=== PATIENT | female | born 1990 | race Caucasian/White ===

== ENCOUNTER → 2019-11-29 13:06 | Outpatient (CLI) | payer OTHER, SELFPAY ==
--- NOTE | ~2019-11-29 | US_ITS ---
EXAMINATION: US thyroid EXAM DATE: 11/29/2019 13:42 INDICATION: Goiter. TECHNIQUE: Multiple grayscale and Doppler images of the thyroid were obtained (by a technologist who performed the scan) and subsequently reviewed. Individual nodules and recommendations may be reporte d in accordance with TI-RADS system as designated by the 2017 ACR White Paper TI-RADS committee. Ther e is no prior study for comparison. FINDINGS: The right thyroid lobe measures 4.8 x 1.3 x 1.3 cm, the left measuring 4.7 x 1.1 x 1.6 cm. There is h omogeneous thyroid echogenicity. There is a nodule in the right thyroid lobe measuring 5 x 6 x 6 millimeters, solid (2 points), hypoec hoic (2 points), wider than tall, smooth margin, May containing punctate echogenic foci (3 points), c ategory TR5 for this nodule. IMPRESSION: 1. Small right thyroid lobe nodule; recommend one-year follow-up ultrasound. Reviewed, dictated and finalized at location A.
== END ==
PROVIDERS: PCP Physician Assistant Medical; Visit Provider Physician Assistant Medical
DX: E04.9 Nontoxic goiter, unspecified (principal)
CPT/HCPCS: 76536

== ENCOUNTER → 2021-02-20 09:33 | Outpatient (CLI) | payer OTHER, SELFPAY ==
[2021-02-20 19:23] LABS: SARS-CoV-2 RNA PCR Positive
== END ==
PROVIDERS: PCP Physician Assistant Medical; Visit Provider Physician Assistant Medical
DX: U07.1 COVID-19 (principal)
CPT/HCPCS: C9803; U0003; U0005

== ENCOUNTER 2021-12-25 10:32 | Outpatient (CLI) | payer OTHER, SELFPAY ==
--- NOTE | ~2021-12-25 | US_ITS ---
EXAMINATION: US carotid duplex BI DATE: 12/25/2021 11:23 INDICATION: Dizziness TECHNIQUE: Grayscale, color Doppler, and pulsed Doppler images of the cervical carotid arteries were obtained. The degree of vessel stenosis is placed in one of the following categories: normal, <50%, 5 0-69%, >=70% but less than near-occlusion, near-occlusion, or total occlusion. Note that percent sten osis relative to normal distal artery lumen diameter is indirectly measured from velocity measurement s as described by Chet, et al. Radiology 2003; 229:340-346. Notes: Normal: Peak systolic velocity <125 centimeters/sec and no plaque <50%. Peak systolic velocity <125 ( EDV <40; ICA/CCA PSV ratio <2.0; used these factors only a tandem lesions or low cardiac output or co ntralateral disease) 50-69 %: PSV 125-230 (EDV 40-100; ratio 2-4) >= 70% but less than near occlusion: PSV greater than 230 (EDV > 100; ratio> 4.0) Near Occlusion: PSV that is variable; markedly narrowed lumen Occlusion: Absent flow on color/spectral Doppler and no lumen on mcneil scale. COMPARISON: None. FINDINGS: RIGHT: The right common carotid artery (CCA) peak systolic velocity (PSV) is 134 cm/s. The right internal ca rotid artery (ICA) PSV is 107 cm/s. The right ICA end-diastolic velocity (EDV) is 37 cm/s. The right ICA/CCA PSV ratio is 0.8. The external carotid artery (ECA) PSV is 92 cm/s. There is antegrade flow i n the right vertebral artery. LEFT: The left CCA PSV is 152 cm/s. The left ICA PSV is 96 cm/s. The left ICA EDV is 41 cm/s. The left ICA/ CCA PSV ratio is 0.6. The ECA PSV is 91 cm/s. There is antegrade flow in the left vertebral artery. IMPRESSION: 1. Less than 50% stenosis in the right internal carotid artery by sonographic criteria. 2. Less than 50% stenosis in the left internal carotid artery by sonographic criteria. Reviewed, dictated and finalized at location B. IMPRESSION: 1. Less than 50% stenosis in the right internal carotid artery by sonographic suzette katz. 2. Less than 50% stenosis in the left internal carotid artery by sonographic samantha suarez.
--- NOTE | ~2021-12-25 | US_ITS ---
US thyroid INDICATION: Nontoxic thyroid nodule TECHNIQUE: Real-time sonographic images of the thyroid gland were obtained. COMPARISON: Ultrasound dated 11/29/2019 FINDINGS: The right thyroid lobe measures 5.5 x 2 x 1.2 cm. The left thyroid lobe measures 4.8 x 1.7 x 1 cm. In the right thyroid lobe there is a small hypoechoic mass measuring 4 x 3 x 4 mm which has a spongiform appearance, hypoechoic, wider than tall, ill-defined margins and echogenic foci, thyroid category TR 4, which does not meet sonographic criteria for biopsy. In the left lobe there is a hypo echoic mass measuring 8 x 7 x 6 mm which is hypoechoic, solid, tolerated than wide, irregular margins with macrocalcifications, TR 5. IMPRESSION: 1. Enlarging left thyroid mass measuring 8 x 7 x 6 mm compared with 6 x 6 x 5 mm on prior examinatio n. Thyroid category TR 5. This does not meet sonographic criteria for biopsy. Follow-up thyroid ultra sound in 12 months recommended. Reviewed, dictated and finalized at location B. IMPRESSION: 1. Enlarging left thyroid mass measuring 8 x 7 x 6 mm compared with 6 x 6 x 5 mm on prior examination. Thyroid category TR 5. This does not meet sonographic criteria for biopsy. Follow-up thyroid ultrasound in 12 months recommended.
== END 2021-12-25 10:33 | disposition home or self-care (01) ==
PROVIDERS: PCP Family Medicine; Visit Provider Nurse Practitioner Family
DX: R42 Dizziness and giddiness (principal); R00.2 Palpitations; E04.1 Nontoxic single thyroid nodule; I65.23 Occlusion and stenosis of bilateral carotid arteries
CPT/HCPCS: 76536; 93880

== ENCOUNTER 2021-12-30 09:05 | Outpatient (CLI) | payer OTHER, SELFPAY ==
--- NOTE | 2022-01-01 14:01 | WPDHOLTEREM ---
Holter/Event Monitor Holter/Event Monitor Date of procedure: 12/30/21 Holter/Event Procedure: 48 Hr Holter Monitor Indications: Palpitations Conclusion: 1. 48 hour holter monitor on 12/30/21. 2. Underlying rhythm is sinus rhythm. HR range 46-160 bpm; average HR 72 bpm. 3. There are 2 premature supraventricular complexes and 25 supraventricular couplets. No supraventricular tachycardia. 4. There are 3 premature ventricular complexes. No ventricular tachycardia. 5. No sinoatrial or atrioventricular blocks. No significant pauses greater than 2 seconds. 6. No symptoms available for correlation.
== END 2021-12-30 09:06 | disposition home or self-care (01) ==
PROVIDERS: PCP Family Medicine; Visit Provider Nurse Practitioner Family
DX: R00.2 Palpitations (principal)
CPT/HCPCS: 93225; 93226

== ENCOUNTER → 2022-05-15 12:54 | Outpatient (CLI) | payer OTHER, SELFPAY ==
--- NOTE | ~2022-05-15 | US_ITS ---
Pelvic ultrasound. Clinical History: First trimester , assess for viability Technique: Realtime transabdominal and transvaginal scanning of the pelvis was performed. Color flow Doppler and Doppler spectral analysis were performed. Findings: The uterus is anteverted, and contains an intrauterine gestation. [place]-rump length of 2 cm corresponds to an estimated gestational age of 8 weeks 4 days. heart rate is 174 bpm. Neither ovary seen. No adnexal mass seen. There is no evidence of free fluid in the cul de sac. Impression: Live intrauterine gestation with estimated gestational age of 8 weeks 4 days. heart rate is 174 bpm. Reviewed, dictated and finalized at location . RAIT ARTIST Impression: Live intrauterine gestation with estimated gestational age of 8 weeks 4 days. F etal heart rate is 174 bpm.
== END ==
PROVIDERS: Visit Provider Advanced Practice Midwife
DX: O36.80X0 Pregnancy with inconclusive fetal viability, not applicable or unspecified (principal); Z3A.08 8 weeks gestation of pregnancy
CPT/HCPCS: 76801

== ENCOUNTER → 2022-07-24 15:50 | Outpatient (CLI) | payer OTHER, SELFPAY ==
--- NOTE | ~2022-07-24 | US_ITS ---
EXAMINATION: US OB /maternal detail DATE: 07/24/2022 16:32 INDICATION: Encounter for screening, unspecified. TECHNIQUE: Real-time ultrasound of the pelvis was performed. COMPARISON: Ultrasound 05/15/2022 FINDINGS: There is a single living fetus in vertex presentation. The placenta is posterior, 4.0 cm from the ce rvix. The cervical length is 2.6 cm on transabdominal images, which is normal. heart rate is 13 8 beats per minute (bpm). The amniotic fluid volume is subjectively normal. The following biometric data were obtained: Biparietal diameter (BPD): 4.2 cm; head circumference (HC): 16.7 cm; abdominal circumference (AC): 13 .7 cm; femur length (FL): 2.7 cm. These measurements are concordant. Estimated weight is 258 g +/- 39 g, which correlates with the 60th percentile when 12/21/22 is u sed as estimated date of delivery. As single measurements, these parameters are each equal to the following estimated gestational ages: BPD: 18 weeks 5 days. HC: 19 weeks 3 days. AC: 19 weeks 1 days. FL: 18 weeks 2 days. estimated gestational age based solely on measurements from this exam is 18 weeks 6 days +/- 1 weeks 2 days. The cerebral ventricles, cerebellum, cisterna magna, nuchal fold, lip, and visualized portions of the spine are normal. The heart is normal. The diaphragm, stomach, kidneys, and bladder are normal. Ther e are two umbilical arteries to yield a 3-vessel cord. The cord insertion is normal. IMPRESSION: 1. Single living fetus in vertex presentation. 2. Estimated weight is 258 g +/- 39 g, which correlates with the 60th percentile when 12/21/22 is used as estimated date of delivery. This date was set by ultrasound on 05/15/2022. 3. Normal anatomic survey. Reviewed, dictated and finalized at location A. IMPRESSION: 1. Single living fetus in vertex presentation. 2. Estimated weight is 258 g +/- 39 g, which correlates with the 60th pe rcentile when 12/21/22 is used as estimated date of delivery. This date was set by ultrasound on 05/15/2022. 3. Normal anatomic survey.
== END ==
PROVIDERS: PCP Advanced Practice Midwife; Visit Provider Advanced Practice Midwife
DX: Z36.9 Encounter for antenatal screening, unspecified (principal); Z3A.00 Weeks of gestation of pregnancy not specified
CPT/HCPCS: 76805

== ENCOUNTER → 2022-10-20 14:00 | Outpatient (CLI) | payer OTHER, SELFPAY ==
--- NOTE | ~2022-10-20 | US_ITS ---
EXAMINATION: US OB follow up DATE: 10/20/2022 14:23 INDICATION: Gestational size less than dates. EXAMINATION: US OB follow up TECHNIQUE: Real-time transabdominal obstetric ultrasound. FINDINGS: Comparison to multiple prior studies sequentially, with oldest reviewed study dated 2022. There is a single living fetus in vertex presentation. The placenta is posterior without placenta pr evia. cardiac activity and movement is noted with a heart rate of 1:30 beats per minute. The amniotic fluid volume is normal with SADIE measuring 11.9. The following biometric data were obtained: BPD: 84mm corresponds to gestational age 34 weeks 0 days. Head circumference: 306mm corresponds to gestational age 34 weeks 1 days. Abdominal circumference: 281mm corresponds to gestational age 32 weeks 1 days. Femur length: 60mm corresponds to gestational age 31 weeks 2 days. Estimated weight: 1936grams +/- 290grams, 75.6%. IMPRESSION: 1. Single living intrauterine in vertex presentation with an estimated gestational age of 31 weeks 1 days by inititial ultrasound. Appropriate interval growth. 2. Normal placenta. 3: Normal SADIE measures 11.9 cm. Reviewed, dictated and finalized at location L. IMPRESSION: 1. Single living intrauterine in vertex presentation with an estimat ed gestational age of 31 weeks 1 days by inititial ultrasound. Appropriate int erval growth. 2. Normal placenta. 3: Normal SADIE measures 11.9 cm.
== END ==
PROVIDERS: PCP Advanced Practice Midwife; Visit Provider Advanced Practice Midwife
DX: O36.5930 Maternal care for other known or suspected poor fetal growth, third trimester, not applicable or unspecified (principal); Z3A.31 31 weeks gestation of pregnancy
CPT/HCPCS: 76816

== ENCOUNTER 2022-12-11 01:00 | Inpatient (IN) | payer OTHER, SELFPAY ==
[2022-12-11] VITALS (125 sets, daily range): BP systolic 92–189; BP diastolic 40–153; PULSE 63–153; RESP 16–18; TEMP 35.9–37.3; O2SAT 93–100; BMI 25.4
[2022-12-11 02:20] LABS: Basophils Percent Auto 0.4 % (0.2-1.2); Eosinophils Absolute Auto 0.1 K/mm3 (0-0.3); Eosinophils Percent Auto 1.1 % (0-4.4); Hematocrit 35.6 % (37.0-47.0); Immature Granulocyte Percent A 1.2 % (0-0.5); Lymphocytes Absolute Auto 1.81 K/mm3 (0.9-3.2); Lymphocytes Percent Auto 21.6 % (18.3-44.2); Mean Corpuscular HGB Conc 33.7 g/dl (32-36); Mean Corpuscular Hemoglobin 30.7 pg (26-34); Mean Platelet Volume 11.5 fl (7.4-10.4); Monocytes Absolute Auto 1.1 K/mm3 (0.1-0.6); Monocytes Percent Auto 13.3 % (2.6-8.5); Neutrophils Absolute Auto 5.2 K/mm3 (1.3-6.7); Neutrophils Percent Auto 62.4 % (45.5-73.1); Platelet Count Result 166 k/mm3 (150-375); Red Blood Count 3.91 M/mm3 (4.2-5.4); Red Cell Distribution Width 13.2 % (11.5-14.5); White Blood Count 8.4 K/mm3 (4.5-10.0)
--- NOTE | 2022-12-11 04:34 | LDADM ---
This patient, Yvette Cortez, was admitted to Labor/Delivery/Recovery 105 on 12/11/22 at 01:00. Plans for labor, pain management and were discussed with patient. Patient/family oriented to hospital policies and general routines including ID bracelet, bed and alarms, visiting hours, pain management, procedures, bathroom and other care routines, personal items, smoking policy, room service/diet and guest tray routines, infant security routines, and visiting hours. Patient/Family are encouraged to report perceived risks to care and to ask questions if they do not understand what they are told or what they should do. See OBIX for further documentation.
[2022-12-11 06:05] LABS: Rapid Plasma Reagin Non-Reactive (NonReactive)
[2022-12-11] MEDS: LACTATED RINGERS 1,000 ML 125 ML IV CONT ×2 (06:08→07:16)
--- NOTE | 2022-12-11 06:15 | WPDANESEPP ---
Anes - Eval Pre Procedure Procedure: labor eoidural Date/Time: 12/11/22 06:15 Pre Op Diagnosis: SROM Patient Data Age: 32 Gender: F Height: 1.75 m Weight: 78 kg Last Vital Signs Pulse 81 12/11/22 02:00 BP 138/76 12/11/22 02:00 Allergies Allergy/AdvReac Type Severity Reaction Status Date / Time No Known Allergies Allergy Verified 11/22/22 12:29 Home Medications Medication Instructions Recorded Confirmed Type escitalopram oxalate 10 mg tablet 5 mg PO DAILY #90 tabs 01/02/22 12/11/22 Rx (Lexapro) calcium-ergocalciferol (vit D2) 1 cap PO WEEKLY 11/22/22 12/11/22 History capsule vits no.126-ferrous fum 1 tablet PO DAILY 11/22/22 12/11/22 History 28 mg iron-folic acid 800 mcg tablet (Classic ) Laboratory Tests 12/11/22 02:05 WBC 8.4 K/mm3 (4.5-10.0) RBC 3.91 L M/mm3 (4.2-5.4) Hgb 12.0 g/dL (12.0-15.0) Hct 35.6 L % (37.0-47.0) MCV 91.0 fl (80-100) MCH 30.7 pg (26-34) MCHC 33.7 g/dl (32-36) RDW 13.2 % (11.5-14.5) Plt Count 166 k/mm3 (150-375) MPV 11.5 H fl (7.4-10.4) Immature Gran % (Auto) 1.2 H % (0-0.5) Neut % (Auto) 62.4 % (45.5-73.1) Lymph % (Auto) 21.6 % (18.3-44.2) Sequoyah % (Auto) 13.3 H % (2.6-8.5) Eos % (Auto) 1.1 % (0-4.4) Baso % (Auto) 0.4 % (0.2-1.2) Lymph # (Auto) 1.81 K/mm3 (0.9-3.2) Sequoyah # (Auto) 1.1 H K/mm3 (0.1-0.6) Eos # (Auto) 0.1 K/mm3 (0-0.3) Baso # (Auto) 0.0 K/mm3 (0.0-0.1) Abs Immat Gran (auto) 0.10 H K/mm3 (0.00-0.031) Absolute Neuts (auto) 5.2 K/mm3 (1.3-6.7) Absolute Nucleated RBC 0.0 K/mm3 (0.0-0.012) Nucleated RBC % 0.0 % (0.0-0.2) RPR Non-reactive (NonReactive) Blood Type B Positive Antibody Screen Negative Patient hx anesthesia problems: none Family hx anesthesia problems: none Results Review: All pre-operative results and documents have been reviewed as part of the pre-operative evaluation. [facility] Past Medical History Medical History BMI between 19-24,adult Family History Family History Father No problems noted. Mother Heart disease Hypotension Sibling No problems noted. 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 Gender identity (if verbalized by the patient): Female Sexual Orientation (if Verbalized by the Patient): Straight or Heterosexual Spiritual care concerns: No Agree to blood products: Yes Exam Day of Procedure 12/11/22 06:15 Patient weight: normal Heart: regular rate and rhythm Lungs: normal air movement Airway: Mallampati scale Neurological: alert and oriented
[2022-12-11] MEDS: fentaNYL CITRATE INJ (*CRX) 100 MCG/2 ML VIAL 50 MCG IV PUSH (06:16)
[2022-12-11] MEDS: OXYTOCIN 30 UNITS/NS 500 ML 30 UNITS/500 ML BAG IV CONT (07:28)
--- NOTE | 2022-12-11 07:45 | WPDOBADMIT ---
Obstetrics - Admit Note Admission Note: record reviewed. No pertinent additions to the history and/or any subsequent changes in the physical findings that are not consistent with the expected course of the were found. Additions to the history and/or subsequent changes in the physical findings follow. Here in labor with SROM. Now 4-5 cm per RN and just got epidural. FHTs Cat. I. Pitocin augmentation.
--- NOTE | 2022-12-11 13:30 | PM.OBPRVD ---
OB - Delivery Note Procedure Delivery date: 12/11/22 Procedure: Induction method: None Delivery augmentation: Pitocin Delivery monitor: External FHT and External Uterine Route of delivery: Laceration Description: Perineal - 2nd Degree Delivery repair: vicryl (3-0) Specimen: No Quantitative Blood Loss (ml): 200 Anesthesia type: Epidural Disposition: Floor [place] Baby Date of : 12/11/22 Weeks of gestation at delivery: 39 gender: Male presentation: vertex position: Right Occiput Anterior Placenta delivery description: Spontaneous Cord Vessel Description: 3 Vessels, Nuchal Cord (x 4) and Around Body (under arm, around body and between legs) score one minute: 8 score five minutes: 9
--- NOTE | 2022-12-11 13:32 | PM.OBDSVD ---
DS: Admitting Diagnosis Discharge Date 12/13/22 Admitting Diagnosis SROM in early labor at 39 3/7 DS: Discharge Diagnosis Discharge Diagnosis (1) (normal spontaneous vaginal delivery): Code(s): O80 - Encounter for full-term uncomplicated delivery Status: Acute OB - DS: Summary OB Procedures : Ultrasound OB Procedures Intrapartum: Spontaneous Vag Delivery OB Procedures: : None Peripartum Data Infant Delivery Method: Natural Vaginal Laceration Description: Perineal - 2nd Degree complications: none Status at Discharge Functional status at discharge: independent ambulation Time Spent with Patient Time attestation: Total time spent providing and/or coordinating discharge services: DS: Data Data Completed and Pending Labs on day of discharge: Labs from last 24 hours 12/11/22 02:05 WBC 8.4 RBC 3.91 L Hgb 12.0 Hct 35.6 L MCV 91.0 MCH 30.7 MCHC 33.7 RDW 13.2 Plt Count 166 MPV 11.5 H Immature Gran % (Auto) 1.2 H Neut % (Auto) 62.4 Lymph % (Auto) 21.6 Weld % (Auto) 13.3 H Eos % (Auto) 1.1 Baso % (Auto) 0.4 Lymph # (Auto) 1.81 [place] # (Auto) 1.1 H Eos # (Auto) 0.1 Baso # (Auto) 0.0 Abs Immat Gran (auto) 0.10 H Absolute Neuts (auto) 5.2 Absolute Nucleated RBC 0.0 Nucleated RBC % 0.0 RPR Non-reactive Blood Type B Positive Antibody Screen Negative Discharge Plan Discharge Attending physician on discharge: Yris Carpenter Discharging Clinician: Yris Carpenter Anticipated Discharge Date/Time: 12/13/22 13:33 Patient Disposition: Home, Self-Care Activity: may shower and pelvic rest Diet: regular Patient Instructions: Antibiotic Form Stand Alone Forms: General Discharge Information Follow-up/Referrals: Yris Carpenter MD [Physician] - 6 Weeks Discharge Medications: New norethindrone (contraceptive) 0.35 mg tablet 0.35 mg PO DAILY Qty: 84 3RF Rx Instructions: start in 3 weeks Continued escitalopram oxalate [Lexapro] 10 mg tablet 5 mg PO DAILY Qty: 90 1RF Classic 28 mg iron- 800 mcg Tablet 1 tablet PO DAILY Discontinued calcium-vitamin D2 Capsule 1 cap PO WEEKLY Date of admission: 12/11/22 01:00 Primary Care Provider: PHYSICIAN,HVAC R INSTRUCTOR Admitting Provider: Yris Carpenter Attending physician on admission: Yris Carpenter Condition: Stable
[2022-12-11] MEDS: OXYTOCIN 30 UNITS/NS 500 ML 30 UNITS/500 ML BAG 125 UNITS IV CONT (13:50)
--- NOTE | 2022-12-11 15:28 | PC.NURSE ---
Patient transferred to post room #287 via wheelchair. Support person present. Oriented to unit, room, information board, rooming in, admission packet and security measures. Patient verbalizes understanding.
[2022-12-11] MEDS: BENZOCAINE 20% AER SPR (*SP) 56 GM CAN 1 SPRAY TOPICAL (15:49)
[2022-12-11] MEDS: WITCH HAZEL 40 PADS 1 PAD TOPICAL (15:49)
--- NOTE | 2022-12-11 16:31 | PC.NURSE ---
[id number] Consulted with patient to assess needs related to . Mother led conversation with her experience with feeding baby so far. Mother works well with her with encouragement. Reviewed positioning and alignment, supporting breast, off-centered (asymmetrical latch) and leading with the chin with big, open, wide gape. Infant latched to the right breast in football position and LC assisted and educated mother with a deeper latch to protect her nipples and optimize swallows. Education given to mother of how to visualize suck/swallow ratios and listen for drinking at the breast. Infant was able to maintain latch without discomfort to mother. Nipple care reviewed with optimal latch, good positioning and using clean hands when feeding her infant and touching her breast. Resources used to facilitate learning were used from the mom and baby guide. Parents voiced understanding of the education shared, to call for assistance if the does not latch or if there is discomfort with . Reported to the primary RN.
--- NOTE | 2022-12-11 16:41 | PC.NURSE ---
1400- Introductions were made and mother is post delivery with the assistance of Zohreh BRUNO. Infant isn't maintaining but when does latch it is effective with good rocking jaw movements. Shared with mother that I would check on her later on the PP floor.
--- NOTE | 2022-12-12 07:52 | PM.OBPNVD ---
OB - PN: Subj Subjective Date/time seen: 12/12/22 07:52 Patient comments: no complaints and pain well controlled baby status: doing well OB - PN: Obj Data Labs 12/12/22 04:10 Labs: Laboratory Results - last 24 hr 12/12/22 04:10 Hgb 10.0 L Hct 30.0 L OB - PN A/P Plan day: 1 Plan: routine care Time Spent With Patient Time: Total time spent is greater than 50% in coordination of care (as documented) at patient's floor/unit and/or counseling patient: Exam : Bimanual exam- vagina & uterus: other (Uterus firm, nt @U)
[2022-12-12] MEDS: MULTIVIT/MIN/PREN/FOL AC/IRON TABLET 1 TAB PO (08:52)
[2022-12-12] MEDS: IBUPROFEN 600 MG TABLET PO (08:52)
[2022-12-12] MEDS: ESCITALOPRAM OXALATE 10 MG TABLET PO (08:52)
[2022-12-12 09:00] VITALS: BP 128/80; PULSE 85; RESP 16; TEMP 36.8; O2SAT 98
[2022-12-12 13:03] VITALS: BP 136/63; PULSE 76; RESP 16; TEMP 37.2; O2SAT 96
--- NOTE | 2022-12-12 13:07 | WPDANLDPN2 ---
Anes-Prog Note L&D Date/Time: 12/12/22 13:07 Comfortable throughout: labor and delivery Neuraxial method: epidural Epidural/Spinal procedure site: clean & non-tender Neuro status: Neuro function grossly intact. Cardiovascular status: normal Respiratory status: normal Airway patency: baseline Mental status: baseline Post-Op hydration status: normal Vital Signs: Last Vital Signs Temp 37.2 C 12/12/22 13:03 Pulse 76 12/12/22 13:03 Resp 16 12/12/22 13:03 BP 136/63 12/12/22 13:03 Pulse Ox 96 12/12/22 13:03 O2 Del Method Room Air 12/11/22 16:20 Pain score (VAS): 2 I/O: Intake & Output 12/11/22 12/12/22 12/12/22 23:59 07:59 15:59 Intake Total 240 240 Output Total 90 Balance 150 240 Post-procedural complaints: none Patient feedback: Patient satisfied with anesthetic care.
--- NOTE | 2022-12-12 18:06 | PC.NURSE ---
[id number] Consulted with patient to assess needs related to . Mother led conversation with her experience with feeding baby so far. Mother works well with her infant with encouragement. Reviewed working with , supporting breast and how to protect the nipples with an optimal deep latch, good positioning, and good hand washing. Encouraged understanding the benefits of skin to skin, responding to feeding cues, frequencies of feeding 8-12 times in 24 hours (approximately 2-3 hours), duration of feedings, milk production, intake/output feeding sheet and signs of adequate intake encouraging swallowing at the breast. Reviewed positioning and alignment, supporting breast, off-centered (asymmetrical latch) and leading with the chin with big, open, wide gape. Infant shows feeding signs when upright on mother's chest, then lays next to the breast looking around with no efforts at all. spits up copious amounts of colostrum and clearing fluid. RN Placed infant back [id number], and instructed parents to attempt to breastfeed again when feeding cues are visualized or 1-2 hours. Resources used to facilitate learning were used from the tool, mom and baby guide. Parents acknowledged the education shared, and were encouraged to call for assistance if the infant does not latch or if there is discomfort with . Reported to the primary RN.
[2022-12-12 20:00] VITALS: BP 117/70; PULSE 78; RESP 18; TEMP 36.8; O2SAT 98
--- NOTE | 2022-12-13 07:00 | PC.NURSE ---
PT introductions made and plan of care discussed per post , daily care activities, pain management, breast feeding and pending discharge to home. PT and fob both recipients of such instructions and no barriers to learning identified at this time.Pt received such instructions per one to one discussion, mom baby care guide and demonstrations this shift. PT verbalized understanding of such care.
--- NOTE | 2022-12-13 09:47 | PM.OBPNVD ---
OB - PN: Subj Subjective Date/time seen: 12/13/22 09:47 Patient comments: no complaints and pain well controlled baby status: doing well OB - PN: Obj Data Labs 12/12/22 04:10 OB - PN A/P Plan day: 2 Plan: routine care, discharge home and follow up 6 weeks Comments: plans micronor for bc Time Spent With Patient Time: Total time spent is greater than 50% in coordination of care (as documented) at patient's floor/unit and/or counseling patient: Exam : Bimanual exam- vagina & uterus: other (Uterus firm, nt @U)
[2022-12-13] MEDS: ACETAMINOPHEN 325 MG TABLET 650 MG PO (10:01)
[2022-12-13] MEDS: IBUPROFEN 600 MG TABLET PO (10:04)
[2022-12-13] MEDS: DOCUSATE SODIUM 100 MG CAPSULE PO (10:04)
[2022-12-13] MEDS: MULTIVIT/MIN/PREN/FOL AC/IRON TABLET 1 TAB PO (10:04)
[2022-12-13] MEDS: ESCITALOPRAM OXALATE 10 MG TABLET PO (10:05)
[2022-12-13 10:15] VITALS: BP 133/78; PULSE 88; RESP 20; TEMP 37.6; O2SAT 97
--- NOTE | 2022-12-13 12:00 | PC.NURSE ---
Patient viewed the discharge video Mother & Baby Care, The First Two Weeks . Patient was given the opportunity and encouraged to ask questions. Patient verbalized understanding of information shared and has been given the mother/baby guide for home reference. PT received discharge instructions per protocol and verbalized understanding of such care.
[2022-12-15 10:17] VITALS: BP 145/75; PULSE 79; RESP 18; TEMP 36.9; O2SAT 100
== END 2022-12-13 12:40 | disposition home or self-care (01) | DRG 807 ==
LOC: ANHLDR 13:33 → ANHOB2 16:26
PROVIDERS: Advanced Practice Midwife; Admitting Provider Obstetrics & Gynecology Gynecology; Visit Provider Obstetrics & Gynecology Gynecology
DX: O69.82X0 Labor and delivery complicated by other cord entanglement, without compression, not applicable or unspecified (principal); Z37.0 Single live birth; Z3A.38 38 weeks gestation of pregnancy; O70.1 Second degree perineal laceration during delivery
CPT/HCPCS: 36415; 85014; 85018; 85025; 86592; 86850; 86900; 86901; A9270; J2590; J2795; J3010; J7120